=== PATIENT | male | born 1940 | race Caucasian/White ===

== ENCOUNTER 2021-05-27 15:58 | Inpatient (IN) ==
[2021-05-27 16:53] LABS: Basophils # 0.1 10*3/uL (0.0-0.2); Basophils % 0.6 % (0.0-0.8); Eosinophils # 0.3 10*3/uL (0.0-0.87); Eosinophils % 3.9 % (0.00-10.9); Hematocrit 50.6 VOL% (42.0-52.0); Hemoglobin 16.3 GM/DL (14.0-18.0); Immature Granulocytes % 0.1 %; Immature Granulocytes Absolute 0.01 #; Lymphocytes # 2.2 10*3/uL (1.4-4.0); Mean Corpuscular HGB Conc 32.2 GM/DL (32-36); Mean Corpuscular Volume 96.4 FL (87-102); Monocytes % 6.7 % (1.7-12.7); Neutrophils % 60.7 % (38.7-73.9); Platelet Count 166 T/CUMM (130-400); Red Blood Count 5.25 MC/CUMM (3.8-5.5); Red Cell Distribution Width 14.4 % (9.3-17.3); White Blood Count 7.7 T/CUMM (4-12)
[2021-05-27 17:10] LABS: Bilirubin,Total 1.4 MG/DL (0.20-1.00); Calcium 9.6 MG/DL (8.5-10.1); Osmolality,Calculated 282.3 MOS/KG (273-304); Potassium 3.9 MMOL/L (3.5-5.1); Total Protein 7.3 G/DL (6.4-8.2)
[2021-05-27] MEDS ORDERED: APIXABAN 5 MG TABLET PO STA (17:47)
[2021-05-27] MEDS ORDERED: GLUCAGON 1 MG VIAL IM PRN (18:33)
[2021-05-27] MEDS ORDERED: DEXTROSE 50% 25 GM/50 ML VIAL IV PRN (18:33)
[2021-05-27] MEDS ORDERED: hydrALAZINE 20 MG/1 ML VIAL IV PRN (18:33)
[2021-05-27] MEDS ORDERED: ENOXAPARIN 120 MG/0.8 ML SYRINGE SUBCUT ONE (18:54)
[2021-05-27] MEDS ORDERED: ENOXAPARIN 100 MG/ML SYRINGE SUBCUT SCH (19:00)
[2021-05-27] MEDS ORDERED: HEPARIN/NACL 0.9% 2 UNITS/ML 3,000 UNIT/1,500 ML BAG IV ONE (19:59)
[2021-05-27] MEDS ORDERED: LIDOCAINE 1% 20 ML VIAL ONE (19:59)
[2021-05-27] MEDS ORDERED: MIDAZOLAM 2 MG/2 ML VIAL ONE (20:24)
[2021-05-27] MEDS ORDERED: fentaNYL 100 MCG/2 ML VIAL ONE (20:24)
[2021-05-27] MEDS ORDERED: ALTEPLASE 6 MG in SODIUM CHLORIDE 0.9% 120 ML IV SCH ×3 (20:30)
[2021-05-27 20:31] LABS: PT Patient Result 10.9 SECS (10.5-12.0); Partial Thromboplastin Time 26.4 SECS (23.9-33.8)
[2021-05-27] MEDS ORDERED: SODIUM CHLORIDE 0.9% 1,000 ML IV SCH ×2 (22:00)
[2021-05-27 23:59] LABS: INR 1.1; PT Patient Result 11.8 SECS (10.5-12.0); Partial Thromboplastin Time 35.3 SECS (23.9-33.8)
[2021-05-28] MEDS ORDERED: ENOXAPARIN 100 MG/ML SYRINGE SUBCUT SCH (06:00)
[2021-05-28 06:06] LABS: Basophils # 0.1 10*3/uL (0.0-0.2); Basophils % 0.6 % (0.0-0.8); Eosinophils # 0.1 10*3/uL (0.0-0.87); Eosinophils % 1.6 % (0.00-10.9); Hematocrit 44.3 VOL% (42.0-52.0); Immature Granulocytes % 0.3 %; Immature Granulocytes Absolute 0.03 #; Lymphocytes # 1.3 10*3/uL (1.4-4.0); Lymphocytes % 14.7 % (21.2-54.2); Mean Corpuscular HGB Conc 31.6 GM/DL (32-36); Mean Corpuscular Volume 97.1 FL (87-102); Mean Platelet Volume 10.7 FL (9.6-12.0); Monocytes % 7.7 % (1.7-12.7); Neutrophils % 75.1 % (38.7-73.9); Platelet Count 148 T/CUMM (130-400); Red Blood Count 4.56 MC/CUMM (3.8-5.5); Red Cell Distribution Width 14.4 % (9.3-17.3); White Blood Count 8.7 T/CUMM (4-12)
[2021-05-28 06:13] LABS: PT Patient Result 11.6 SECS (10.5-12.0)
[2021-05-28 06:40] LABS: Calcium 8.9 MG/DL (8.5-10.1); Osmolality,Calculated 284.1 MOS/KG (273-304); Potassium 3.7 MMOL/L (3.5-5.1)
[2021-05-28] MEDS ORDERED: HEPARIN/NACL 0.9% 2 UNITS/ML 1,000 UNIT/500 ML BAG IV ONE (07:41)
[2021-05-28] MEDS: APIXABAN 5 MG TABLET PO SCH ×2 (11:39→21:08)
[2021-05-28] MEDS ORDERED: clonazePAM 0.5 MG TABLET PO SCH (21:00)
[2021-05-29] MEDS: APIXABAN 5 MG TABLET PO SCH (08:37)
[2021-05-29 12:20] VITALS: BP 127/63
[2021-06-05] MEDS ORDERED: APIXABAN 5 MG TABLET PO SCH (09:00)
== END 2021-05-29 15:42 | disposition home or self-care (01) | DRG 176 ==
LOC: N.ED 15:58 → SUATTDRO 19:14 → N.EDINP 19:14 → N.CVR 22:25 → N.TELEN 05-28 13:39
PROVIDERS: ADMIT Internal Medicine; ATTEND Internal Medicine